=== PATIENT | male | born 1940 | race Caucasian/White ===

== ENCOUNTER 2024-03-20 06:18 | Day surgery (SDC) | payer OTHER, SELFPAY ==
[2024-03-20] VITALS (11 sets, daily range): BP systolic 132–175; BP diastolic 55–82; BMI 27.7
[2024-03-20] MEDS: TYLENOL 1000 MG PO (08:15)
[2024-03-20] MEDS: NORMOSOL-R 1000 IV (08:16)
--- NOTE | 2024-03-20 10:53 | W.IMMPOSTOP ---
Surgical Immed Post Op Note
-
Primary Surgeon: Raz
Assisting: Rah BURROUGHS
Pre-op Diagnosis: Incarcerated left inguinal hernia, incarcerated umbilical hernia
Post-op Diagnosis: Same
Procedure Performed: Robot assisted laparoscopic repair of incarcerated left inguinal hernia, incarcerated umbilical hernia (rTAPP)
Anesthesia Type: GETA + TAP block
Specimen / Cultures: None
Estimated Blood Loss: 5cc
Complications: None immediate
Operative Findings: Indirect left inguinal defect with sigmoid colon, XL MID 3D max; 1.2cm incarcerated umbilical hernia; 8cm bard soft mesh
--- NOTE | 2024-03-20 10:55 | OR.RPT ---
Operative Report
Operative Report
Primary Surgeon: Raz
Assisting: Rah BURROUGHS
Pre-op Diagnosis: Incarcerated left inguinal hernia, incarcerated umbilical hernia
Post-op Diagnosis: Same
Procedure Performed: Robot assisted laparoscopic repair of incarcerated left inguinal hernia, incarcerated umbilical hernia (rTAPP)
Anesthesia Type: GETA + TAP block
Specimen / Cultures: None
Estimated Blood Loss: 5cc
Complications: None immediate
Operative Findings: Indirect left inguinal defect with sigmoid colon, XL MID 3D max; 1.2cm incarcerated umbilical hernia; 8cm bard soft mesh
Date of surgery: 03/20/24
Indications:� This 83M developed symptomatic left inguinal hernia. On imaging and exam an umbilical hernia was identified as well. He asked that we repair both hernias today. Robot assisted laparoscopic repair was planned.
Description of procedure:� The patient was taken to the operating room and positioned into supine position. The patient�s abdomen was prepped and draped in standard sterile fashion. A time-out was completed verifying correct patient, procedure,
site, positioning, and implants and special equipment prior to beginning this procedure.� The hernia was manually reduced after induction. A stab incision was made in the left upper quadrant, a Veress needle was inserted and proper position was
confirmed by aspiration and saline drop test. Following this, pneumoperitoneum was created with insufflation of carbon dioxide to 12 mmHg. Then a 8mm robotic trocar was inserted above and to the left of the umbilicus. A laparoscope was inserted and
the area of initial trocar entry and Veress needle placement were both inspected and no injuries were found. Two 8mm trocars were then placed lateral to the rectus sheath under direct visualization.
Both inguinal regions were inspected and the median umbilical ligament, medial umbilical ligament, and lateral umbilical fold were identified. Attention was turned to the left groin. The peritoneum was incised transversely above the defect and a
flap was developed in the caudad direction. Shay�s ligament was identified ultimately dissected to its junction with the iliac vein and the space of Retzius was developed bluntly.� The dissection was continued inferiorly to the iliopubic tract,
with care taken to avoid injury to the femoral branch of the genitofemoral nerve and the lateral femoral cutaneous nerve. The cord structures were parietalized.
The direct space was inspected and a hernia was not identified. The femoral space was inspected a defect was not identified.� The indirect space was inspected and a hernia was identified and reduced by gentle traction along with a moderate cord
lipoma. The cord was noted to be fatty.
Extra large left MID 3D max mesh was passed through a trocar. The mesh was placed into the preperitoneal space and moved into position to lay flat and completely cover the direct, indirect, and femoral spaces with overlap at the midline. The mesh
was secured into place using 2-0 vicryl suture to Shay�s ligament medially and laterally. Care was taken to avoid the inferolateral triangles containing the iliac vessels and genital nerves. The peritoneal flap was closed over the mesh and secured
with 2-0 monocryl stratafix suture in similar positions of safety. A 14g angiocath was used to decompress the preperitoneal space revealing good seal and all mesh in good position without folding or curling.
Attention was turned to the umbilicus. The peritoneum was incised transversely several cm superior to the defect. A flap was developed with blunt and sharp dissection in the caudad direction. The hernia was identified and measured as above,
incarcerated fat was reduced and the hernia was closed with 0 PDS stratafix suture. An 8 x 8cm piece of bard soft mesh was passed into the abdomen and placed flush against the abdominal wall centered on the defect. The mesh was secured at all four
corners with 2-0 vicryl suture. The flap was closed with 2-0 monocryl suture. A long flap rent on the right side was closed with the 2-0 monocryl stratafix suture. A 14g angiocath was used to decompress the preperitoneal space revealing good seal
and all mesh in good position without folding or curling. A transversus abdominis plane block was then performed under laparoscopic vision with marcaine/decadron.
After ensuring adequate hemostasis, the trocars were removed and the pneumoperitoneum allowed to escape. The trocar incisions were closed at the skin level using 4-0 monocryl and topical skin adhesive. All counts were correct and the patient
tolerated the procedure well and was taken to the postanesthesia care unit in stable condition.
The assistance of Rah BURROUGHS was required due to the complexity of the procedure. During the procedure he assisted with retraction, resection, and closure of the wound.
== END 2024-03-20 13:28 | disposition home or self-care (01) ==
LOC: SDS 06:18
PROVIDERS: ATTENDING PHYSICIAN Surgery
DX: K40.30 Unilateral inguinal hernia, with obstruction, without gangrene, not specified as recurrent (principal); K42.0 Umbilical hernia with obstruction, without gangrene
CPT/HCPCS: 49650; 49592; C1781; J1335

== ENCOUNTER → 2024-06-18 10:17 | Outpatient (REF) | payer OTHER, SELFPAY | LOC: HWRCS 10:17 | PROVIDERS: ATTENDING PHYSICIAN Internal Medicine Interventional Cardiology | DX: I25.10 Atherosclerotic heart disease of native coronary artery without angina pectoris (principal); Z95.1 Presence of aortocoronary bypass graft | CPT/HCPCS: 93306 ==

== ENCOUNTER 2025-01-06 10:31 | Day surgery (SDC) | payer OTHER, SELFPAY ==
[2025-01-06] VITALS (14 sets, daily range): BP systolic 123–153; BP diastolic 60–113; BMI 27.3
[2025-01-06 11:44] LABS: Hematocrit 40.9 % (39.0-52.0); Hemoglobin 14.5 g/dL (13.0-18.0); Mean Corp Hgb Conc. 35.5 g/dL (33.0-37.0); Mean Corpuscular Hgb 33.4 pg (27.0-31.0); Mean Corpuscular Volume 94.2 fL (80.0-94.0); Mean Platelet Volume 9.9 fL (7.4-10.4); Platelet Count 179 10^3/uL (130-400); Red Blood Cell Count 4.34 10^6/uL (4.70-6.10); White Blood Cell Count 7.1 10^3/uL (4.8-10.8)
[2025-01-06 11:59] LABS: ALT (SGPT) 25 U/L (0-50); AST (SGOT) 27 U/L (17-59); Albumin 3.8 g/dl (3.5-5.0); Alkaline Phosphatase 72 U/L (38-126); Blood Urea Nitrogen 20 mg/dl (9-20); Calcium 9.3 mg/dl (8.4-10.2); Carbon Dioxide 27 mmol/L (22-30); Chloride 105 mmol/L (98-107); Estimated Creatinine Clearance 51 ml/min; Glucose 99 mg/dl (70-99); Potassium 4.2 mmol/L (3.5-5.1); Sodium 139 mmol/L (135-145); Total Bilirubin 1.1 mg/dl (0.2-1.3); Total Protein 6.2 g/dl (6.3-8.2); eGFR > 60.00
[2025-01-06] MEDS: VANCOCIN 530 MG IV (12:43)
--- NOTE | 2025-01-06 13:24 | ITS.CL.PACE ---
Remediation Project Engineer - Pacemaker Implant
Pacemaker Implant
Procedure Report:
Primary Care Doctor: Dr Sathish West
Primary Bead Cutter: Dr Esvin Higginbotham
Procedure Date: 01/06/2025
Name of procedure:
1. Placement of a dual-chamber pacemaker with left bundle area pacing lead for conduction system pacing
2. Subclavian venography
History:
1. Patient is a pleasant 84-year-old male with a past medical history significant for HELEN, CAD, hypertension, hypercholesterolemia, factor V Leiden deficiency, complete heart block with sick sinus syndrome.
2. Please refer to H&P for complete history.
Indication:
Paroxysmal Complete heart block
Sick sinus syndrome
Bradycardia
Methods:
After informed consent was obtained, the patient was brought to the EP laboratory in a postabsorptive, nonsedated state. Peripheral IV access was established. Prophylactic antibiotics were administered prior to incision. Continuous ECG, blood
pressure, and pulse oximetry were initiated. Cardioversion patch electrodes were placed on the patient's chest and back. A grounding patch was applied to the skin. Sedation was administered by anesthesia services.
In order to define the extrathoracic portion of the subclavian vein and exclude significant venous obstruction or anomalous anatomy, subclavian venography was performed prior to the procedure. Using the patient's left peripheral IV, contrast was
injected and images were recorded. The left subclavian vein and SVC were found to be widely patent.
The left chest was prepared and draped in a sterile fashion. A time-out was performed. Local anesthesia was injected in the subcutaneous tissue in the infraclavicular area. An incision was made medial to the deltopectoral groove. The subcutaneous
tissue was dissected the level of the prepectoral fascia. A subcutaneous pocket was created. Under fluoroscopic guidance and with the assistance of the images from the venogram, 2 separate venipunctures were made using micropuncture and modified
Seldinger technique. These were performed in the extrathoracic portion of the subclavian vein. Guidewires were passed and two peel-away sheaths were placed, and used to advance leads into the circulation.
Fluoroscopy was used to determine likely anatomic site for left bundle branch pacing. The Medtronic C315 sheath was used to deliver the Medtronic 3830 Selectsecure pacing lead with the helix exposed just exposed from the sheath tip during continuous
monitoring when pacemapping the septum during gentle clockwise rotation to obtain a paced QRS morphology of a W pattern in lead V1. Once the suspected optimal site was identified, lead deployment was performed with several rapid rotations as paced
QRS morphology was intermittently monitored until a paced QRS complex in lead V1 demonstrated development of an R wave (qR or rSR). Unipolar pacing impedance dropped by approximately 100 ohms suggesting it had reached the left ventricular
subendocardial. Stable VEgm injury current is present throughout lead position and at end of case. Final unipolar pacing impedance is 900 Ohms. Unipolar pacing threshold is stable at 0.625 V @ 0.4 ms. The patient had pre-existing narrow QRS. Final
conduction system paced QRS complex duration is 138 ms, LVAT is 56 ms, and peak V5 -> peak V1 timing is 63 ms. The C315 sheath was slit under fluoroscopy ensuring lead position and stability.
Next, the right atrial lead was positioned in the right atrial appendage. Adequate sensing and pacing parameters were found, and no diaphragmatic stimulation was seen with high-output pacing. Both sheaths were split, and the leads were secured to
the fascia with Ethibond ties.
The pocket was flushed with antibiotic solution and hemostasis was assured. The generator was connected to the leads and placed inside the pocket. The device was sutured to the fascia. Antibiotic envelope was used. Floseal was applied. The wound
was closed with 3 running layers of absorbable suture, and steri-strips were applied. Dressing applied over steri-strips in standard fashion.
Following the procedure, the patient was taken to the recovery area in stable condition. A chest x-ray to be obtained post procedure as routine.
Lead parameters and device programming:
- RA Lead (Medtronic, Model 5076, #[id number]): Sensing 2.0 mV, Pacing threshold 0.5 V at 0.4 ms, Imp 399 Ohm
- RV Lead (Medtronic, Model 3830, #[id number]): Sensing 7.1 mV, Pacing threshold 0.5 V at 0.4 ms, Imp 855 Ohm
- Device: Medtronic, Model W1DR01 pacemaker (#[id number]), programmed DDDR mode switch on lower rate 60 upper tracking rate 130 ppm
Conclusions:
1. Successful placement of a dual-chamber pacemaker with conduction system pacing (LBBAP)
2. Subclavian venography
Recommendations:
1. Admit
2. Chest x-ray today, [facility] in AM
3. IV antibiotics while the patient is admitted.
4. OK to resume home medications as indicated
5. Pressure dressing to be removed in AM, aquacell to remain until wound check
6. Follow-up will be arranged in the office in 7-10 days post-discharge
7. OK to resume Eliquis 01/08/2025 AM if patient and device stable
Dax Amador, DO
Clinical Cardiac [facility]
cc: Dr Sathish West; Dr Esvin Higginbotham
--- NOTE | 2025-01-06 16:21 | CM ---
CM following for DC planning needs.
Met w/ patient at bedside to complete initial assessment.
Pt. resides w/ spouse in a private, indep. living home in a 55+ community/ [facility].
Pt. is indep. prior to admission w/ ADLs, mobility without the use of any assisted device.
Antic. DC plan is for home, no needs.
Pt. has RX plan and uses [facility] on [address]
CM to follow.
--- NOTE | 2025-01-06 16:42 | PTCARENOTE ---
Rec'd pt from EP lab. L chest wall w/ steri strips, aquacel, press dsg. c/d/i. L arm immobilizer on. EKG obtained. Tele= AV paced. Assessment completed as documented. Activity restrictions reviewed w/ pt and verbalizes understanding. Currently in
bed; call chintan w/in reach.
--- NOTE | 2025-01-06 19:50 | PTCARENOTE ---
Assumed care of pt from prev nsg shift; Pt AAOx3 w/no c/o CP or SOB. Pt's VSS w/HR 60 & BP 131/66. Pt is AV paced on telemetry monitoring. Pt's new PPM site w/dressing C/D/I, w/no signs or symptoms of bleeding or hematoma. Pt assisted OOB to BR;
gait steady. Pt w/call woodson within reach & plan of care ongoing.
[2025-01-06] MEDS: ALTACE 10 MG PO (20:37)
[2025-01-06] MEDS: TYLENOL 650 MG PO (20:37)
[2025-01-06] MEDS: ASPIR LOW (ENTERIC COATED) 81 MG PO (20:37)
[2025-01-06] MEDS: LIPITOR 80 MG PO (20:37)
[2025-01-07 02:59] VITALS: BP 124/66
[2025-01-07 04:32] LABS: Hematocrit 41.4 % (39.0-52.0); Hemoglobin 14.5 g/dL (13.0-18.0); Mean Corpuscular Hgb 33.2 pg (27.0-31.0); Mean Corpuscular Volume 94.7 fL (80.0-94.0); Mean Platelet Volume 10.9 fL (7.4-10.4); Platelet Count 186 10^3/uL (130-400); Red Blood Cell Count 4.37 10^6/uL (4.70-6.10); Red Cell Dist. Width 11.9 % (11.5-14.5); White Blood Cell Count 10.6 10^3/uL (4.8-10.8)
[2025-01-07 04:53] LABS: Blood Urea Nitrogen 21 mg/dl (9-20); Calcium 9.2 mg/dl (8.4-10.2); Carbon Dioxide 22 mmol/L (22-30); Chloride 108 mmol/L (98-107); Estimated Creatinine Clearance 56 ml/min; Glucose 134 mg/dl (70-99); Potassium 4.5 mmol/L (3.5-5.1); Sodium 137 mmol/L (135-145); eGFR > 60.00
[2025-01-07 07:30] VITALS: BP 141/77
--- NOTE | 2025-01-07 09:13 | PTCARENOTE ---
Pt ambulating in room, stone well. L CW dsg D+I. Pt med with Tylenol 650 mg po for pain with relief noted.
[2025-01-07] MEDS: PROSCAR 5 MG PO (09:33)
[2025-01-07] MEDS: ZETIA 10 MG PO (09:33)
[2025-01-07] MEDS: ALTACE 10 MG PO (09:33)
[2025-01-07] MEDS: TYLENOL 650 MG PO (09:33)
--- NOTE | 2025-01-07 09:44 | W.PN.CARDCBS ---
Addendum entered and electronically signed by Michael Reid MD 01/07/25 10:10:
Patient seen, interviewed and examined by me.
Well-appearing, no acute distress
Regular rate and rhythm with normal S1 and S2, no S3 no S4. There is a grade 1/6 apical holosystolic murmur and no rubs. PMI is normally placed.
Lungs are clear to auscultation bilaterally without wheezes rales or rhonchi.
Abdomen soft nontender nondistended with normoactive bowel sounds
Extremities show trace pretibial edema bilaterally no clubbing or cyanosis.
Neurologic exam is grossly nonfocal.
He has symptomatic bradycardia with findings of those sick sinus syndrome as well as paroxysmal complete heart block with no reversible cause and underwent successful implantation of Medtronic dual-chamber permanent pacemaker (conduction system
pacing via engagement of the left bundle branch system) on January 06, 2025.
I reviewed telemetry which demonstrates the normal expected atrial ventricular pacing.
I personally reviewed his ECG from today January 07, 2025 which shows dual-chamber pacing.
I personally reviewed his chest x-ray which shows no evidence of pneumothorax and normal expected positioning of the pacemaker generator as well as atrial and left bundle branch ventricular pacing lead.
He tells me that he feels well.
We reviewed yesterday's finding/results.
We reviewed discharge instructions including arm motion restrictions.
All of his questions have been answered.
Stable for discharge to home today.
Original Note:
Today's Communication / Plan
-
post PPM stable for d/c home
Impression / Plan
-
Primary Care Doctor: Dr Sathish West
Primary Auto Wash Buffer: Dr Esvin Higginbotham
84-year-old male with a past medical history significant for HELEN, CAD, hypertension, hypercholesterolemia, factor V Leiden deficiency, complete heart block with sick sinus syndrome.
Impression:
SSS with paroxysmal CHB
Symptomatic bradycaria
post DC PPM 01/06/25
HTN
HLD
HELEN/CPAP
Factor V Leiden
RBBB
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
BPH
Plan:
post device site stable
tele AVdual paced
CXR no PTX, leads in good position
Hold Eliquis, resume on Saturday am
continue aspirin
Activity restrictions reviewed
Incision check 1 week at [facility]
home today
Progress Note - Auto Wash Buffer
Subjective
Date of Service: January 07, 2025
no cp, sob, mild inc pain
Objective
Labs:
01/07/25 03:22
01/07/25 03:22
Labs
Hgb 14.5 g/dL (13.0-18.0) 01/07/25 03:22
Hct 41.4 % (39.0-52.0) 01/07/25 03:22
Plt Count 186 10^3/uL (130-400) 01/07/25 03:22
Sodium 137 mmol/L (135-145) 01/07/25 03:22
Potassium 4.5 mmol/L (3.5-5.1) 01/07/25 03:22
BUN 21 mg/dl (9-20) H 01/07/25 03:22
Creatinine 1.0 mg/dL (0.7-1.3) 01/07/25 03:22
Glucose 134 mg/dl (70-99) H 01/07/25 03:22
Vital Signs and I&O:
Vital Signs
Temp Pulse Resp BP Pulse Ox
98.1 F 60 16 124/66 95
01/07/25 07:25 01/07/25 05:15 01/07/25 07:25 01/07/25 02:59 01/07/25 07:25
Vital Signs
Temp Pulse Resp BP Pulse Ox
98.1 F 60 16 124/66 95
01/07/25 07:25 01/07/25 05:15 01/07/25 07:25 01/07/25 02:59 01/07/25 07:25
Intake & Output
01/05/25 01/06/25 01/07/25 01/08/25
06:59 06:59 06:59 06:59
Intake Total 960 / 960
Output Total 400 / 400
Balance 560 / 560
Physical Exam
Physical Exam
NAD< AOX3
S1, S2, RRR
CTAB, non labored
SNTND Bsx4
L CW dressing c/d/i no HT, pressure dressing removed
[2025-01-07 10:31] VITALS: BP 139/70
--- NOTE | 2025-01-07 12:14 | W.DS.TRANS ---
DC Summary - Vertical Borer
-
Discharge Instructions:
Discharge Diagnosis/Procedures Pacemaker implant
Diet Low Cholesterol
Driving Restrictions No driving for 1 week
Bathing Restrictions OK to Shower
Instructions:
Stand-Alone Forms: DC Inst - Implanted Device
Changes to Home Medications: No
Discharge Medications:
DC Medications w/original date entered in [employer]
multivit,Ca,min-iron 8 mg-folic acid 200 mcg-lycopene 600 mcg tablet (Centrum Ultra Men's) 1 tab PO DAILY 05/19/10
ramipril 10 mg capsule 10 mg PO BID 08/07/10
ascorbic acid (vitamin C) 500 mg tablet (Vitamin C) 500 mg PO DAILY 12/22/10
cholecalciferol (vitamin D3) 25 mcg (1,000 unit) tablet (Vitamin D3) 1,000 unit PO HS 12/22/10
atorvastatin 80 mg tablet 80 mg PO HS 08/21/13
aspirin 81 mg tablet,delayed release 81 mg PO HS 01/10/23
ezetimibe 10 mg tablet 10 mg PO DAILY 01/10/23
apixaban 2.5 mg tablet (Eliquis) 2.5 mg PO BID 03/17/24
finasteride 5 mg tablet 5 mg PO DAILY 03/17/24
Home Medication Changes
Pending Results: No
== END 2025-01-07 11:50 | disposition home or self-care (01) ==
LOC: CATH 10:31
PROVIDERS: Nurse Practitioner; ATTENDING PHYSICIAN Internal Medicine Cardiovascular Disease; FAMILY PHYSICIAN Internal Medicine Geriatric Medicine; OTHER PHYSICIAN Internal Medicine Interventional Cardiology
DX: I44.2 Atrioventricular block, complete (principal); I49.5 Sick sinus syndrome; G47.33 Obstructive sleep apnea (adult) (pediatric); I25.10 Atherosclerotic heart disease of native coronary artery without angina pectoris; I10 Essential (primary) hypertension; E78.00 Pure hypercholesterolemia, unspecified; D68.51 Activated protein C resistance; N40.0 Benign prostatic hyperplasia without lower urinary tract symptoms; Z88.0 Allergy status to penicillin; Z88.1 Allergy status to other antibiotic agents; Z91.030 Bee allergy status; Z95.1 Presence of aortocoronary bypass graft; Z79.82 Long term (current) use of aspirin; Z79.899 Other long term (current) drug therapy; Z79.01 Long term (current) use of anticoagulants
CPT/HCPCS: 33208; 71045; 80048; 80053; 83735; 85027; 93005; C1769; C1785; C1887; C1892; C1898; Q9967

== ENCOUNTER 2025-09-27 11:26 | Emergency (ER) | payer OTHER, SELFPAY ==
[2025-09-27] VITALS (14 sets, daily range): BP systolic 127–165; BP diastolic 65–126; BMI 29.9
[2025-09-27] MEDS: NORCO 5/325 1 TABLET PO ×2 (12:41→15:24)
[2025-09-27 13:25] LABS: Hematocrit 41.0 % (39.0-52.0); Hemoglobin 14.2 g/dL (13.0-18.0); Mean Corp Hgb Conc. 34.6 g/dL (33.0-37.0); Mean Corpuscular Volume 94.0 fL (80.0-94.0); Nucleated Red Blood Cells % 0 % (-); Platelet Count 183 10^3/uL (130-400); Red Cell Dist. Width 12.4 % (11.5-14.5)
[2025-09-27 13:35] LABS: INR 1.19; PT 15.2 Sec (11.4-14.6)
[2025-09-27 13:36] LABS: APTT 30.0 Sec (23.4-35.0)
--- NOTE | 2025-09-27 13:41 | ED.GENMED ---
History of Present Illness
General
Chief Complaint: Fall
Source: patient and family
Exam Limitations: none
Time Seen by Provider: 09/27/25 12:15
Nursing documentation reviewed up to this point in time: agreed with
History of Present Illness
History of Present Illness:
see MDM
Past History
Past History
ED Past Medical History: CAD, HTN, Hypercholesterolemia and Other (CAD status post coronary stent in 2005, hypertension, hyperlipidemia )
ED Past Surgical History: Cardiac
Social History
Tobacco: Non-smoker
Alcohol: Occasional
Drug: None
Personal:
Living: with family
Employment: Retired
Family History
Family History: CAD and Other (CA head and neck father )
Review of Systems
Review of Systems
Allergies reviewed?: Yes
All Other Systems: Not applicable
Phy Exam
Physical Exam
Physical Exam:
GENERAL: Alert , in no apparent distress
pain with movement
HEAD: NCAT
NECK: no midline tenderness, active ROM intact, no paraspinal muscle tenderness;
EYE: pupils equal and reactive, EOMs intact.
ENT: o/p clr, mmm. no hemotympanum
CARDIAC: Regular rate and rhythm, no edema
LUNGS: Clear breath sounds bilaterally, no acute respiratory distress, no wheezes/rales/rhonchi
chest wall: left loewr rib tendenrss
ABDOMEN: Soft, moderate L flank and LUQ tendenress
NEUROLOGICAL: Alert and oriented, no focal neuro deficits, CN intact, 5/5 strength, sensation intact
SKIN: Warm and dry,
MUSCULOSKELETAL: No edema, well perfused.
right wally nontender
mild pain with movement
good ROM
PSYCH: Normal and appropriate interaction.
Course
Orders/Labs/Results
Orders:
Orders
09/27/25 12:26
CT Chest/abd/pel W Iv Cont Urgent
Comment: PER Cleopatra JOLLY
Reason For Exam: fall on eliquis, left ribs/luq pain
Cardiac Monitoring- Treatment ONCE
09/27/25 12:27
Hydrocodone 5/APAP 325 [Taylor 5/325] 1 tablet PO NOW STA
CR Shoulder, Trauma - Right Urgent
Comment:
Reason For Exam: right shoulder pain after fall
09/27/25 13:00
Complete Blood Count/With Diff Urgent
Comprehensive Metabolic Panel Urgent
PTT Urgent
Prothrombin Time Urgent
Troponin I Urgent
09/27/25 14:12
Morphine Sulfate 2 mg IV NOW STA
09/27/25 14:51
Hydrocodone 5/APAP 325 [Taylor 5/325] 1 tablet PO NOW STA
Incentive Spirometry [Rx Incentive Spirometry] [RESP] Urgent
Frequency: q1h while awake
09/27/25 16:29
HYDROmorphone [Dilaudid] 0.5 mg IV NOW STA
Abnormal Lab Results
09/27/25
13:00
RBC 4.36 L 10^6/uL
(4.70-6.10)
MCH 32.6 H pg
(27.0-31.0)
Absolute Neuts (auto) 7.9 H 10^3/uL
(1.4-6.5)
Absolute Monos (auto) 1.3 H 10^3/uL
(0.1-0.6)
Lymphocytes % 12.3 L %
(20.5-51.1)
Monocytes % 12.3 H %
(1.7-9.3)
PT 15.2 H Sec
(11.4-14.6)
Sodium 134 L mmol/L
(135-145)
09/27/25 13:00
09/27/25 13:00
Vital Signs
Initial and Last Documented VS:
Initial Vital Signs
Temp Pulse Resp Pulse Ox
36.4 C 57 19 98
09/27/25 11:28 09/27/25 11:28 09/27/25 11:28 09/27/25 11:28
Last Documented Vital Signs
Temp Pulse Resp BP Pulse Ox
36.4 C 60 21 134/74 96
09/27/25 11:28 09/27/25 18:45 09/27/25 18:45 09/27/25 18:45 09/27/25 18:45
MDM/Problems Addressed
Differential Diagnosis Includes:
see MDM
MDM/Problems Addressed:
Note:
CHIEF COMPLAINT(S)
Right shoulder and left wrist pain following a fall.
HISTORY OF PRESENT ILLNESS
The patient is an 85-year-old male presenting with pain in the right shoulder and left ribs following a fall that occurred yesterday. The patient describes tripping over a concrete parking barrier while assisting his . He fell forward onto grass
but landed with his iPhone in his jacket, which exacerbated the impact on his L chest. He reports pain in his right shoulder, and L . There was no loss of consciousness or head strike during the fall. He also noted difficulty arising from the ground
and mentioned a previous rotator cuff surgery on the same shoulder, performed approximately 20 years ago. The patient reports using an ice pad for pain relief. He rates his pain as significant enough to affect his ability to sleep in his bed,
resorting to a recliner instead. He took Tylenol at around 10 AM today. The patient denies shortness of breath but states breathing deep aggravates pain. Given his anticoagulant use (Eliquis for a previous blood clot), a computed tomography (CT)
scan of his chest, abdomen, and pelvis has been advised to rule out internal injuries. X-rays of his shoulder are also planned.
PAST MEDICAL AND SURIGICAL HISTORY
The patient had rotator cuff surgery on the right shoulder approximately 20 years ago.
SOCIAL DETERMINANTS AFFECTING HEALTH
The patient was helping his with a toileting need at the time of the fall.
MEDICATIONS
Eliquis for a previous blood clot.
PHYSICAL EXAM
- The nursing notes and vital signs were reviewed.
- Pain upon palpation of the right shoulder.
- Tenderness noted in the right rib and abdominal region upon examination.
- Decreased range of motion due to pain.
PLAN
- Conduct a CT scan of the chest, abdomen, and pelvis with contrast to evaluate for internal injuries due to anticoagulant use.
- Perform X-rays of the right shoulder to assess for possible fractures.
- Blood work to be drawn as part of the diagnostic process.
- Offer pain management with Morphine or Percocet while in the emergency department.
- Consider Vicodin for continued pain management at home depending on pain relief response.
DIFFERENTIAL DIAGNOSIS
The Differential Diagnosis includes, in no particular order and is not limited to:
1. Rib fracture
2. Shoulder fracture
3. Wrist fracture
4. Soft tissue injury
5. Hemothorax
6. Pneumothorax
7. Visceral injury (e.g., spleen or liver injury)
8. Contusions
9. Acute pain due to trauma
10. Exacerbation of previous shoulder injury
85 y/o M with h/o pacer, dvt on eliquis
mechanical trip and fall yesterday over concrete parking barrier landing on grass onto his knees and hands but his cell phone was in L pocket qand he has L lower rib/abd pain, as well as right shoulder pain
minimal L knee pain/abrasion
painful deep breathing but not sob
no head strike
no vomiting
tender L lower anterior rbis, LUQ, L flank
very much in pain with lying flat
no sob
will order trauma scan (no head/neck)
CT C/A/P shows 4 nondsplaced rib fx
no ptx
no hemothorax
Patient pains are controlled. We did discuss this with ED attending Dr. Dyer and the patient was shared medical decision making we decided to transfer the patient for pain control. He was accepted by Dr. Del Angel at [facility]
*Pulse Oximetry
SaO2: 98
Patient hypoxic: no (96)
*Critical Care Note
Total Time (30-74mins, 75-104mins- exclusive of procedures): Not Applicable
ED Attending Note
-
Portions of this chart may have been created with voice recognition software.� Occasional wrong word or��sound alike� substitutions may have occurred due to the inherent limitations of voice recognition software.
Discharge Plan
Departure
Patient Disposition: Acute Care Hospital
Date of Disposition: 09/27/25
Time of Disposition: 16:08
Condition: Fair
Covid-19: Not Applicable
Discharge Problem:
Fracture, ribs
Prescriptions:
No Action
Centrum Ultra Men's 1 EACH tablet
1 tab PO DAILY
ramipril 10 MG capsule
10 mg PO BID
ascorbic acid (vitamin C) [Vitamin C] 500 MG tablet
500 mg PO DAILY
cholecalciferol (vitamin D3) [Vitamin D3] 1,000 UNIT tablet
1,000 unit PO HS
atorvastatin 80 MG tablet
80 mg PO HS
aspirin 81 mg Tablet,Delayed Release (Dr/Ec)
81 mg PO HS
ezetimibe 10 mg tablet
10 mg PO DAILY
Eliquis 2.5 mg Tablet
2.5 mg PO BID
finasteride 5 mg Tablet
5 mg PO DAILY
Referrals:
Sathish West MD [Family Provider, Internal Medicine]
Hospital Transfer
Other hospital: [facility]
I certify that the patient requires transfer: Yes
Discussed case with accepting physician: rae
Reason for transfer: higher level of care
Interventions
Interventions:
*General Assessment Last Done: 09/27/25 11:30
*Neglect/Abuse Screening Last Done: 09/27/25 11:30
*ED COVID-19 Vaccine History Last Done: 09/27/25 11:30
*ED Influenza Vaccine History Last Done: 09/27/25 11:30
[facility] Risk Assessment Tool Last Done: 09/27/25 16:09
*Risk Screen - Suicide (C-SSRS) Last Done: 09/27/25 11:30
*Nursing Disposition Last Done: 09/27/25 18:58
ED-Musculoskeletal Assessment Last Done: 09/27/25 13:07
ED- Neurological Assessment Last Done: 09/27/25 13:07
ED-Skin Assessment Last Done: 09/27/25 13:07
Discharge Date and Time
Discharge Date/Time: 09/27/25 19:01
Print Language: BELGIAN
[2025-09-27 13:55] LABS: ALT (SGPT) 21 U/L (0-50); AST (SGOT) 28 U/L (17-59); Albumin 4.1 g/dl (3.5-5.0); Alkaline Phosphatase 68 U/L (38-126); Blood Urea Nitrogen 16 mg/dl (9-20); Calcium 9.2 mg/dl (8.4-10.2); Carbon Dioxide 25 mmol/L (22-30); Chloride 102 mmol/L (98-107); Estimated Creatinine Clearance 51 ml/min; Glucose 86 mg/dl (70-99); Potassium 4.7 mmol/L (3.5-5.1); Sodium 134 mmol/L (135-145); Total Protein 6.6 g/dl (6.3-8.2); eGFR > 60.00
[2025-09-27 14:20] LABS: Troponin I < 0.012 ng/ml
[2025-09-27] MEDS: MORPHINE SULFATE 2 MG IV (14:20)
[2025-09-27] MEDS: DILAUDID 0.5 MG IV (16:33)
== END 2025-09-27 19:01 | disposition short-term general hospital (02) ==
LOC: EMR 11:26
PROVIDERS: Physician Assistant; EMERGENCY PHYSICIAN Emergency Medicine; FAMILY PHYSICIAN Internal Medicine Geriatric Medicine
DX: S22.42XA Multiple fractures of ribs, left side, initial encounter for closed fracture (principal); M25.511 Pain in right shoulder; W18.09XA Striking against other object with subsequent fall, initial encounter; I25.10 Atherosclerotic heart disease of native coronary artery without angina pectoris; E78.00 Pure hypercholesterolemia, unspecified; I10 Essential (primary) hypertension; Z79.01 Long term (current) use of anticoagulants; Z95.5 Presence of coronary angioplasty implant and graft
CPT/HCPCS: 96374; 96375; 99284; 71260; 73030; 74177; 80053; 84484; 85025; 85610; 85730; Q9967